=== PATIENT | male | born 1955 | race Caucasian/White ===

== ENCOUNTER → 2019-08-08 10:28 | Outpatient (CLI) | payer OTHER, SELFPAY | PROVIDERS: Visit Provider Physician Assistant | DX: S21.209A Unspecified open wound of unspecified back wall of thorax without penetration into thoracic cavity, initial encounter (principal) | CPT/HCPCS: 87070; 87077; 87147; 87186; 87205 ==

== ENCOUNTER → 2019-10-03 12:04 | Outpatient (CLI) | payer OTHER, SELFPAY ==
--- NOTE | 2019-10-03 12:08 | DI.RAD.S_ITS ---
PROCEDURE: XR CHEST 2V INDICATIONS: productive cough green sputum TECHNIQUE: 2 views of the chest were acquired. COMPARISON: None. FINDINGS: Surgical changes and devices: None. Lungs and pleura: Lungs are clear. No pleural effusions or pneumothorax. Mediastinum: Mediastinal contours are normal. Heart size is normal. Bones and chest wall: No suspicious bony abnormalities. Soft tissues appear unremarkable. IMPRESSION: No pneumonia found. Dictated by: Jitendra Schmid M.D. on 10/03/2019 at 12:58 Approved by: Jitendra Schmid M.D. on 10/03/2019 at 12:59
== END ==
PROVIDERS: PCP Nurse Practitioner; Visit Provider Nurse Practitioner
DX: R05 Cough (principal)
CPT/HCPCS: 71046

== ENCOUNTER → 2019-10-13 08:08 | Outpatient (CLI) | payer OTHER, MEDICARE, SELFPAY ==
[2019-10-13 08:51] LABS: Add Manual Diff / Slide Review NO; Basophils Absolute Auto 0 /uL (0-100); Basophils Percent Auto 0.6 % (0-2); Eosinophils Absolute Auto 200 /uL (0-450); Eosinophils Percent Auto 4.4 % (2-4); Hematocrit 43.7 % (41-53); Hemoglobin 15.2 g/dL (13.5-17.5); Lymphocytes Absolute Auto 1300 /uL (1100-4500); Lymphocytes Percent Auto 34.5 % (25-40); Mean Corpuscular HGB Conc 34.7 % (30-36); Mean Corpuscular Hemoglobin 31.5 PG (26-34); Mean Corpuscular Volume 90.6 fL (80-100); Monocytes Absolute Auto 400 /uL (0-900); Monocytes Percent Auto 9.5 % (3-14); Neutrophils Absolute Auto 1900 /uL (1500-7000); Platelet Count 168 X10^3/uL (150-400); Red Blood Cell Count 4.83 X10^6/uL (4.5-5.9); White Blood Cell Count 3.8 X10^3/uL (4.5-11.0)
[2019-10-13 09:03] LABS: Alanine Aminotransferase 27 IU/L (<50); Albumin 4.1 g/dL (3.5-5.0); Albumin Globulin Ratio 1.5 (1.0-2.8); Alkaline Phosphatase 64 U/L (38-126); Aspartate Aminotransferase 22 IU/L (17-59); BUN Creatinine Ratio 21.4 (6-22); Bilirubin Total 0.5 mg/dL (0.2-1.3); Blood Urea Nitrogen 15 mg/dL (9-20); Calcium 9.1 mg/dL (8.4-10.2); Carbon Dioxide 27 mmol/L (22-32); Chloride 106 mmol/L (98-107); Cholesterol 239 mg/dL (140-199); Estimated Glomerular Filt Rate > 60.0 mL/min (>60); Globulin 2.8 g/dL (1.7-4.1); Glucose 153 mg/dL (80-110); HDL Cholesterol 42 mg/dL (40-60); HEMOLYSIS < 15 (0-50); LDL Cholesterol Calculated 170 mg/dL (<100); Potassium 4.5 mmol/L (3.4-5.1); Sodium 143 mmol/L (137-145); Total Protein 6.9 g/dL (6.3-8.2); Triglycerides 133 mg/dL (35-150)
[2019-10-13 09:12] LABS: Hemoglobin A1C% w Est Avg Glu 5.8 % (4.0-6.0)
[2019-10-13 09:30] LABS: Prostate Specific Antigen Scrn 1.84 ng/mL (0.1-4.0)
[2019-10-13 09:53] LABS: Microalbumi Creatinin Ratio Ur 635.5 ug/mg CR (<30); Microalbumin Urine Random 48.3 mg/dL (0-1.6)
[2019-10-13 09:57] LABS: Free T4, Direct Thyroxine 0.84 ng/dL (0.78-2.19)
[2019-10-13 10:11] LABS: Thyroid Stimulating Hormone 2.94 uIU/mL (0.47-4.68)
== END ==
PROVIDERS: PCP Nurse Practitioner; Visit Provider Nurse Practitioner
DX: Z12.5 Encounter for screening for malignant neoplasm of prostate (principal); E11.9 Type 2 diabetes mellitus without complications; E66.9 Obesity, unspecified; E78.5 Hyperlipidemia, unspecified; I10 Essential (primary) hypertension; Z79.4 Long term (current) use of insulin
CPT/HCPCS: 36415; 80053; 80061; 82043; 82570; 83036; 84439; 84443; 84481; 85025; G0103

== ENCOUNTER → 2019-11-14 06:37 | Outpatient (CLI) | payer OTHER, MEDICARE, SELFPAY ==
--- NOTE | 2019-11-14 06:39 | DI.ECHO.S_ITS ---
[facility]---------+ [facility] +---------+ : : [address] : : : : [id number] : : : : Phone: [phone] Echocardiogram Report + + :Name: AIDA KEYES Study Date: 11/14/2019 Height: 72 in : :[facility] Weight: 280 lb : : Gender: Male BSA: 2.5 m2 : :: 1955 Age: 64 yrs BP: 156/82 mmHg: :Reason For Study: Hypertension : : Performed By: nAa Mcclure : :Referring: JUAN CARLOS COOK : + + Interpretation Summary Normal both left and right ventricle size and function. The ejection fraction is 55-60%. Moderately dilated left atrium. Mildly dilated right atrium. No valvular abnormality. Moderately enlarged ascending aorta. Mildly enlarged aortic arch. Procedure: A two-dimensional transthoracic echocardiogram with color flow and Doppler was performed. The apical views were difficult to obtain and are suboptimal in quality. A contrast injection of Definity was performed to improve assessment of LV function. There is no prior echocardiogram noted for this patient. The patient was in sinus bradycardia with heart rates between 52-62 bpm during the exam. Left Ventricle: The left ventricle is normal in size and wall thickness. There is no ventricular septal defect visualized. The ejection fraction is estimated to be 55-60%. There are no focal wall motion abnormalities. Diastolic parameters suggest probable normal left ventricular diastolic function and normal filling pressures. Right Ventricle: The right ventricle is normal in size and function. Atria: The left atrium is moderately dilated. The right atrium is mildly dilated. There is no Doppler evidence for an interatrial shunt. Mitral Valve: The mitral valve is normal in structure and function. There is no mitral regurgitation noted. Aortic Valve: The aortic valve is normal in structure and function. No aortic regurgitation is present. Tricuspid Valve: The tricuspid valve is normal in structure and function. Pulmonary artery pressures cannot be estimated because of the lack of a measurable TR jet velocity. Pulmonic Valve: The pulmonic valve is normal in structure and function. There is no pulmonic valvular regurgitation. Great Vessels: The aortic root is normal size. The ascending aorta is moderately enlarged. The aortic arch is mildly enlarged. The IVC is of normal diameter and collapses greater than 50% with a sniff. This suggests a low right atrial pressure of 3 mm Hg. Pericardium/ Pleura There is no pericardial effusion. MMode/2D Measurements & Calculations LVIDd: 5.6 cm LVOT diam: 2.5 cm LVIDs: 4.0 cm Ao root diam: 4.0 cm FS: 28.9 % Aortic Jxn: 3.1 cm EPSS: 0.51 cm asc Aorta Diam: 4.2 cm IVSd: 0.95 cm Ao Arch Diam (Prox Trans): 3.7 cm LVPWd: 0.98 cm LV mora. diameter/BSA (cm/m^2): 2.3 LV sys. diameter/BSA (cm/m^2): 1.6 LA A2 area: 30.4 cm2 RA long axis: 5.8 cm LA A4 area: 29.2 cm2 RA area: 23.3 cm2 LA length (vol): 6.6 cm RA vol: 80.0 ml LA vol: 113.9 ml RA : 32.5 ml/m2 LA vol index: 46.3 ml/m2 IVC diam: 1.7 cm RVD1 (basal): 4.4 cm RVD2 (mid): 3.1 cm TAPSE: 3.0 cm Doppler Measurements & Calculations Ao V2 max: 108.8 cm/sec LVOT Max Joel: 76.3 cm/sec Ao V2 mean: 76.9 cm/sec LV V1 max P.3 mmHg Ao max P.7 mmHg LV V1 VTI: 19.2 cm Ao mean P.6 mmHg DOUGLAS(I,D): 3.7 cm2 Ao V2 VTI: 24.3 cm DOUGLAS(V,D): 3.3 cm2 sev ratio: 0.79 DOUGLAS indexed to BSA (cm^2/m^2): 1.5 MV E max joel: 62.1 cm/sec PA V2 max: 77.3 cm/sec MV A max joel: 59.3 cm/sec PA V2 mean: 57.2 cm/sec MV E/A: 1.0 PA mean P.4 mmHg Med Peak E' Joel: 5.9 cm/sec PA Accel Time: 0.13 sec E/E' med: 10.5 Lat Peak E' Joel: 6.6 cm/sec E/E' lat: 9.4 E/e' average: 10.0 MV dec time: 0.27 sec MV P1/2t: 79.4 msec MV P1/2t max joel: 62.1 cm/sec SV(LVOT): 90.7 ml MVA(P1/2t): 2.8 cm2 Electronically signed by: Carlos Rosas on Reading Physician:11/14/2019 03:13 PM
== END ==
PROVIDERS: PCP Nurse Practitioner; Visit Provider Nurse Practitioner
DX: I77.89 Other specified disorders of arteries and arterioles (principal); I10 Essential (primary) hypertension; E03.9 Hypothyroidism, unspecified
CPT/HCPCS: 93306; Q9957

== ENCOUNTER → 2020-01-16 11:12 | Outpatient (CLI) | payer OTHER, MEDICARE, SELFPAY ==
[2020-01-16 11:58] LABS: Hemoglobin A1C% w Est Avg Glu 6.7 % (4.0-6.0)
[2020-01-16 12:05] LABS: Alanine Aminotransferase 38 IU/L (<50); Albumin 4.5 g/dL (3.5-5.0); Albumin Globulin Ratio 1.6 (1.0-2.8); Alkaline Phosphatase 77 U/L (38-126); Aspartate Aminotransferase 29 IU/L (17-59); BUN Creatinine Ratio 16.5 (6-22); Bilirubin Total 0.8 mg/dL (0.2-1.3); Bilirubin Unconjugated 0.7 mg/dL (0.0-1.1); Blood Urea Nitrogen 13 mg/dL (9-20); Calcium 9.5 mg/dL (8.4-10.2); Carbon Dioxide 30 mmol/L (22-32); Chloride 104 mmol/L (98-107); Cholesterol 189 mg/dL (140-199); Estimated Glomerular Filt Rate > 60.0 mL/min (>60); Globulin 2.9 g/dL (1.7-4.1); Glucose 166 mg/dL (80-110); HDL Cholesterol 44 mg/dL (40-60); HEMOLYSIS < 15 (0-50); LDL Cholesterol Calculated 97 mg/dL (<100); Sodium 139 mmol/L (137-145); Total Protein 7.4 g/dL (6.3-8.2); Triglycerides 238 mg/dL (35-150)
[2020-01-16 12:23] LABS: Free T3, Triiodothyronine Free 2.96 pg/mL (2.77-5.27); Free T4, Direct Thyroxine 0.88 ng/dL (0.78-2.19)
[2020-01-16 12:33] LABS: Hematocrit 46.3 % (41-53); Hemoglobin 16.1 g/dL (13.5-17.5); Mean Corpuscular HGB Conc 34.9 % (30-36); Mean Corpuscular Hemoglobin 31.7 PG (26-34); Mean Corpuscular Volume 90.8 fL (80-100); Platelet Count 213 X10^3/uL (150-400); Red Cell Distribution Width 13.3 % (11.6-14.8)
[2020-01-16 12:36] LABS: Creatinine Urine Random 76.6 mg/dL; Thyroid Stimulating Hormone 3.38 uIU/mL (0.47-4.68)
[2020-01-16 12:52] LABS: Hep C Virus Ab w/Reflex Quant NEGATIVE s/c (NEGATIVE)
[2020-01-16 13:23] LABS: Microalbumin Urine Random 69.1 mg/dL (0-1.6)
== END ==
PROVIDERS: PCP Nurse Practitioner; Referring Provider Nurse Practitioner; Visit Provider Nurse Practitioner
DX: Z11.59 Encounter for screening for other viral diseases (principal); E66.9 Obesity, unspecified; E78.5 Hyperlipidemia, unspecified; I10 Essential (primary) hypertension; R73.9 Hyperglycemia, unspecified; Z79.899 Other long term (current) drug therapy; D72.819 Decreased white blood cell count, unspecified; E11.69 Type 2 diabetes mellitus with other specified complication
CPT/HCPCS: 36415; 80053; 80061; 80076; 82043; 82570; 83036; 84439; 84443; 84481; 85027; 86803

== ENCOUNTER → 2020-04-20 07:36 | Outpatient (CLI) | payer OTHER, MEDICARE, SELFPAY ==
[2020-04-20 09:46] LABS: Hemoglobin A1C% w Est Avg Glu 5.8 % (4.0-6.0)
[2020-04-20 10:03] LABS: Cholesterol 125 mg/dL (140-199); Glucose 127 mg/dL (80-110); HDL Cholesterol 49 mg/dL (40-60); LDL Cholesterol Calculated 53 mg/dL (<100); Triglycerides 115 mg/dL (35-150)
== END ==
PROVIDERS: PCP Nurse Practitioner; Referring Provider Nurse Practitioner; Visit Provider Nurse Practitioner
DX: E78.1 Pure hyperglyceridemia (principal); E78.5 Hyperlipidemia, unspecified; R73.9 Hyperglycemia, unspecified
CPT/HCPCS: 36415; 80061; 82947; 83036

== ENCOUNTER → 2020-05-21 13:11 | Outpatient (CLI) | payer OTHER, MEDICARE, SELFPAY ==
[2020-05-21 13:52] LABS: Add Manual Diff / Slide Review NO; Basophils Absolute Auto 0 /uL (0-100); Basophils Percent Auto 0.4 % (0-2); Eosinophils Absolute Auto 200 /uL (0-450); Eosinophils Percent Auto 3.3 % (2-4); Hematocrit 38.3 % (41-53); Hemoglobin 13.7 g/dL (13.5-17.5); Lymphocytes Absolute Auto 1500 /uL (1100-4500); Mean Corpuscular HGB Conc 35.7 % (30-36); Mean Corpuscular Volume 89.8 fL (80-100); Monocytes Absolute Auto 400 /uL (0-900); Monocytes Percent Auto 6.8 % (3-14); Neutrophils Absolute Auto 4300 /uL (1500-7000); Neutrophils Percent Auto 66.5 % (50-75); Platelet Count 194 X10^3/uL (150-400); Red Blood Cell Count 4.27 X10^6/uL (4.5-5.9); Red Cell Distribution Width 13.2 % (11.6-14.8); White Blood Cell Count 6.5 X10^3/uL (4.5-11.0)
[2020-05-21 13:58] LABS: Alanine Aminotransferase 33 IU/L (<50); Albumin 4.1 g/dL (3.5-5.0); Albumin Globulin Ratio 1.6 (1.0-2.8); Alkaline Phosphatase 65 U/L (38-126); Aspartate Aminotransferase 30 IU/L (17-59); BUN Creatinine Ratio 25.8 (6-22); Bilirubin Total 0.7 mg/dL (0.2-1.3); Blood Urea Nitrogen 16 mg/dL (9-20); Calcium 9.2 mg/dL (8.4-10.2); Carbon Dioxide 28 mmol/L (22-32); Chloride 98 mmol/L (98-107); Estimated Glomerular Filt Rate > 60.0 mL/min (>60); Globulin 2.5 g/dL (1.7-4.1); Glucose 112 mg/dL (80-110); HEMOLYSIS < 15 (0-50); Potassium 4.8 mmol/L (3.4-5.1); Sodium 133 mmol/L (137-145); Total Protein 6.6 g/dL (6.3-8.2)
[2020-05-21 15:03] LABS: Free T3, Triiodothyronine Free 2.37 pg/mL (2.77-5.27); Free T4, Direct Thyroxine 0.93 ng/dL (0.78-2.19)
[2020-05-21 15:16] LABS: Thyroid Stimulating Hormone 2.08 uIU/mL (0.47-4.68)
== END ==
PROVIDERS: PCP Nurse Practitioner; Referring Provider Nurse Practitioner; Visit Provider Nurse Practitioner
DX: E03.9 Hypothyroidism, unspecified (principal); E11.9 Type 2 diabetes mellitus without complications; R53.83 Other fatigue; R68.89 Other general symptoms and signs; R73.9 Hyperglycemia, unspecified
CPT/HCPCS: 36415; 80053; 84439; 84443; 84481; 85025

== ENCOUNTER 2020-06-16 10:28 | Observation (INO) | payer OTHER, MEDICARE, SELFPAY ==
[2020-06-16] VITALS (15 sets, daily range): BP systolic 115–159; BP diastolic 58–84; PULSE 54–65; RESP 14–18; TEMP 36.7–36.9; O2SAT 96–99; BMI 35.2
--- NOTE | 2020-06-16 11:01 | ED.SYNCOPE ---
HPI - Syncope General Chief Complaint: Syncope Stated Complaint: passed out last night,scrape on arm/knee pain Time Seen by Provider: 06/16/20 10:32 Source: patient and family Mode of arrival: Ambulatory Limitations: no limitations History of Present Illness HPI narrative: Patient here with . Complaints of syncopal episode 1:00 a.m. today. Patient got up from bed to use the restroom. Was slightly dizzy on the commode having a bowel movement. Denies any current or recent bloody or black stools. He was able to relieve himself and got up and was at the sink to rinse his mouth. Became very lightheaded and states he passed out and awoke on his side on the floor. Patient has been evaluated by Family provider nurse practitioner Cassie donald in the past 4 weeks. Blood studies which were unremarkable including thyroid panel. No EKG echocardiogram or Holter monitor. Patient states he is getting worse. I spoke with Cassie donald and would be comfortable patient being admitted today for syncopal episode. Patient has been ambulatory since event. Does relate right knee pain. MD complaint: loss of consciousness Related Data Previous Rx's Medication Instructions Recorded atorvastatin 40 mg tablet 20 mg PO BEDTIME #45 tab 04/22/20 lisinopril 5 mg tablet 7.5 mg PO DAILY #120 tab 04/22/20 Allergies Allergy/AdvReac Type Severity Reaction Status Date / Time No Known Drug Allergies Allergy Verified 01/14/20 08:50 Review of Systems Review of Systems Narrative: GENERAL: Denies chills, fatigue, malaise, fever, sweats. HEENT: Denies sinus pain, ear pain, sore throat, difficulty swallowing, dizziness. RESPIRATORY: Denies dyspnea, cough, wheezing, hemoptysis, sputum. CARDIOVASCULAR: Denies chest pain, palpitations, orthopnea, edema, GASTROINTESTINAL: Denies nausea, vomiting, abdominal pain, diarrhea, constipation, melena. : Denies dysuria, frequency, incontinence, hematuria, urinary retention. MUSCULOSKELETAL: denies weakness, joint pain, or bony pain SKIN: Denies rash, skin lesions, complains abrasion NEUROLOGIC: Denies weakness, headache, numbness, change in speech, confusion, seizures, incoordination. Complains of dizziness PSYCHIATRIC: No concerning psychosocial issues. ROS Unobtainable: All systems reviewed & are unremarkable except as noted in HPI and below Patient History Medical History Activity intolerance (Acute) Dumping syndrome (Chronic) Fatigue (Acute) Hx MRSA infection (Acute) Hyperlipidemia associated with type 2 diabetes mellitus (Acute) Hypertension associated with diabetes (Acute ~2008) Hypothyroidism (Chronic ~2008) Morbid obesity with BMI of 50.0-59.9, adult (Resolved) Obesity (BMI 35.0-39.9 without comorbidity) (Chronic) Obstructive sleep apnea (Chronic) Other alf (current) drug therapy (Acute) Peripheral neuropathy (Chronic) Shoulder pain, right (Acute ~2017) Tinnitus (Chronic ~1999) Type 2 diabetes mellitus (Acute ~2008) Surgical History Anesthesia (Resolved) H/O vascular surgery (Acute ~2014) History of tonsillectomy (Acute ~1962) Status post laser cataract surgery of both eyes (Acute ~1992) Family History Father Embolism Mother Breast cancer Grandfather No problems noted. Grandmother Dementia in Pick's disease Grandfather No problems noted. Social History household members: significant other Smoking Status: Former smoker alcohol intake: current substance use type: does not use Smoking Status: Former smoker Substance Use Type: does not use Exam Narrative Exam Narrative: GENERAL: patient appears stated age. Well-nourished, well-developed patient, in no distress, not toxic HEAD: Atraumatic. Normocephalic. EYES: Pupils equal round and reactive. Extraocular motions intact. No scleral icterus. No injection or drainage. ENT: Nose without bleeding, purulent drainage. Throat without erythema, tonsillar hypertrophy or exudate. Airway patent. NECK: Trachea midline. Non tender no midline tenderness or step-off. CARDIOVASCULAR: Regular rate and rhythm without murmurs, gallops, or rubs. RESPIRATORY: Clear to auscultation. Breath sounds equal bilaterally. No wheezes, rales, or rhonchi. GASTROINTESTINAL: Abdomen soft, non-tender, nondistended. EXTREMITIES: No edema or joint tenderness. Abrasion to the left triceps. No active bleeding. Nontender shoulder elbow and wrist. No deformity. Examination right lower extremity knee to foot exposed.. Limb is warm soft and pink. Abrasion over right patella. Able to flex extend knee fully actively 90? and then completely extended. No gross deformity. Mild tenderness to touch. No effusion. BACK: Nontender without deformity or crepitance. No flank tenderness. No midline tenderness or step-off. NEURO: AOx3. SKIN: No rash or erythema of visible areas PSYCH: Not anxious, is cooperative Initial Vital Signs Initial Vital Signs: Vital Signs Temperature 98.4 F 06/16/20 10:34 Pulse Rate 64 06/16/20 10:34 Respiratory Rate 18 06/16/20 10:34 Blood Pressure 159/74 H 06/16/20 10:34 Pulse Oximetry 98 06/16/20 10:34 Course Course Course Narrative: Family and patient concerned about worsening condition since May. This has led to syncopal episode today. The would be much more comfortable with admission for syncopal workup. Family physician desires patient to be observed and worked up as well Decision to Admit Date: 06/16/20 Decision to Admit time: 13:53 Orders Ordered: Discontinued Medications Acetaminophen (Tylenol) 650 mg PO Q6HR PRN PRN Reason: Fever/Mild Pain (1-3) Al Hydrox/Mg Hydrox/Simethicone (Maalox Plus) 30 ml PO Q6HR PRN PRN Reason: Dyspepsia Atorvastatin Calcium (Lipitor) 20 mg PO BEDTIME [facility] Last Admin: 06/16/20 21:04 Dose: 20 mg Documented by: VICKI Bisacodyl (Dulcolax) 10 mg LA DAILY PRN PRN Reason: Constipation Calcium Carbonate (Tums) 1,000 mg PO Q4HR PRN PRN Reason: Dyspepsia Diphtheria/Tetanus/Acell Pertussis (Adacel) 0.5 ml IM .ONCE ONE Stop: 06/16/20 11:08 Last Admin: 06/16/20 13:21 Dose: 0.5 ml Documented by: RENETTA Docusate Sodium (Colace) 100 mg PO BID [facility] Last Admin: 06/17/20 08:53 Dose: Not Given Documented by: Admin: 06/16/20 21:04 Dose: 100 mg Documented by: VICKI Enoxaparin Sodium (Lovenox) 40 mg SUBCUT DAILY [facility] Last Admin: 06/17/20 08:53 Dose: Not Given Documented by: UMA Sodium Chloride (Normal Saline 0.9%) 1,000 mls @ 150 mls/hr IV CONT [facility] Last Admin: 06/16/20 13:05 Dose: Not Given Documented by: RENETTA Ibuprofen (Advil) 600 mg PO Q6HR PRN PRN Reason: Fever/Mild Pain (1-3) Last Admin: 06/17/20 15:35 Dose: 600 mg Documented by: VICKI Lisinopril (Zestril) 7.5 mg PO DAILY [facility] Last Admin: 06/17/20 08:52 Dose: Not Given Documented by: UMA Naloxone HCl (Narcan) 0.2 mg IV Q2MIN PRN PRN Reason: Opiate Reversal Ondansetron HCl (Zofran) 4 mg IV Q8HR PRN PRN Reason: Nausea And Vomiting Oxycodone HCl (Percolone) 5 mg PO Q6HR PRN PRN Reason: Pain, Moderate (4-6) Sodium Chloride (Normal Saline 0.9% Flush) 10 ml IV BID [facility] Last Admin: 06/17/20 08:54 Dose: 10 ml Documented by: Admin: 06/16/20 21:01 Dose: 10 ml Documented by: VICKI Reevaluation(s) Reevaluation #1: No dizziness no new complaints at this time. Time: 13:53 Consultations Consultation #1: Spoke with primary care provider, nurse practitioner, Cassie donald, she would be comfortable patient be admitted today she has done but she could from outpatient setting Time: 11:09 Consultation #2: Spoke with hospitalist, Dr. roldan, will admit Time: 13:53 Vital Signs Vital signs: Vital Signs - 8 hr 06/16/20 10:34 06/16/20 10:48 06/16/20 11:00 Temperature 98.4 F Pulse Rate 64 60 60 Pulse Rate [Orthostatic Lying] Pulse Rate [Orthostatic Sitting] Pulse Rate [Orthostatic Standing] Respiratory Rate 18 15 17 Blood Pressure 159/74 H Blood Pressure [Orthostatic Lying] Blood Pressure [Orthostatic Sitting] Blood Pressure [Orthostatic Standing] Pulse Oximetry 98 98 96 06/16/20 11:01 06/16/20 11:16 08/12/20 11:30 Temperature Pulse Rate 59 L 57 L 57 L Pulse Rate [Orthostatic Lying] Pulse Rate [Orthostatic Sitting] Pulse Rate [Orthostatic Standing] Respiratory Rate 17 18 14 Blood Pressure 141/65 H 122/69 121/70 Blood Pressure [Orthostatic Lying] Blood Pressure [Orthostatic Sitting] Blood Pressure [Orthostatic Standing] Pulse Oximetry 96 98 96 06/16/20 11:44 06/16/20 11:46 06/16/20 11:47 Temperature Pulse Rate 56 L 64 Pulse Rate [Orthostatic Lying] Pulse Rate [Orthostatic Sitting] Pulse Rate [Orthostatic Standing] Respiratory Rate 18 16 Blood Pressure 126/72 135/73 115/66 Blood Pressure [Orthostatic Lying] Blood Pressure [Orthostatic Sitting] Blood Pressure [Orthostatic Standing] Pulse Oximetry 97 98 06/16/20 11:49 06/16/20 12:00 06/16/20 12:30 Temperature Pulse Rate 55 L 56 L Pulse Rate [Orthostatic Lying] 55 L Pulse Rate [Orthostatic Sitting] 62 Pulse Rate [Orthostatic Standing] 65 Respiratory Rate 15 16 Blood Pressure 138/65 115/58 L Blood Pressure [Orthostatic Lying] 126/72 Blood Pressure [Orthostatic Sitting] 135/73 Blood Pressure [Orthostatic Standing] 115/66 Pulse Oximetry 97 97 MDM - Syncope Differential Diagnosis Differential diagnosis: Likely syncope due to orthostatic hypotension, vasovagal syncope and pulmonary embolism Medical Records Attestation: I reviewed the patient's medical records. Lab Data Attestation: I reviewed the patient's lab results. Result diagrams: 06/16/20 10:35 06/16/20 10:35 Labs: Lab Results 06/16/20 06/16/20 06/16/20 Range/Units 10:35 10:35 10:35 WBC 8.5 (4.5-11.0) X10^3/uL RBC 4.52 (4.5-5.9) X10^6/uL Hgb 14.5 (13.5-17.5) g/dL Hct 41.3 (41-53) % MCV 91.4 (80-100) fL MCH 32.1 (26-34) PG MCHC 35.1 (30-36) % RDW 12.9 (11.6-14.8) % Plt Count 205 (150-400) X10^3/uL Neut % (Auto) 75.9 H (50-75) % Lymph % (Auto) 15.1 L (25-40) % [place] % (Auto) 7.1 (3-14) % Eos % (Auto) 1.5 L (2-4) % Baso % (Auto) 0.4 (0-2) % Neut # (Auto) 6500 (6955-6725) /uL Lymph # (Auto) 1300 (6170-0297) /uL [place] # (Auto) 600 (0-900) /uL Eos # (Auto) 100 (0-450) /uL Baso # (Auto) 0 (0-100) /uL D-Dimer < 200 (<230) ng/mL Sodium 134 L (137-145) mmol/L Potassium 4.5 (3.4-5.1) mmol/L Chloride 101 (98-107) mmol/L Carbon Dioxide 25 (22-32) mmol/L BUN 23 H (9-20) mg/dL Creatinine 0.74 (0.66-1.25) mg/dL Estimated GFR > 60.0 (>60) mL/min BUN/Creatinine Ratio 31.1 H (6-22) Glucose 151 H (80-110) mg/dL Hemoglobin A1c (4.0-6.0) % Calcium 9.2 (8.4-10.2) mg/dL Magnesium 2.1 (1.6-2.3) mg/dL Total Bilirubin 0.6 (0.2-1.3) mg/dL AST 30 (17-59) IU/L ALT 27 (<50) IU/L Alkaline Phosphatase 68 (38-126) U/L Total Creatine Kinase 39 L (55-170) U/L CK-MB (CK-2) TNP CK-MB (CK-2) Rel Index TNP Troponin I < 0.012 (0.01-0.034) ng/mL Total Protein 7.4 (6.3-8.2) g/dL Albumin 4.5 (3.5-5.0) g/dL Globulin 2.9 (1.7-4.1) g/dL Albumin/Globulin Ratio 1.6 (1.0-2.8) 08/12/20 Range/Units 10:35 WBC (4.5-11.0) X10^3/uL RBC (4.5-5.9) X10^6/uL Hgb (13.5-17.5) g/dL Hct (41-53) % MCV (80-100) fL MCH (26-34) PG MCHC (30-36) % RDW (11.6-14.8) % Plt Count (150-400) X10^3/uL Neut % (Auto) (50-75) % Lymph % (Auto) (25-40) % [place] % (Auto) (3-14) % Eos % (Auto) (2-4) % Baso % (Auto) (0-2) % Neut # (Auto) (9204-8574) /uL Lymph # (Auto) (8447-2637) /uL [place] # (Auto) (0-900) /uL Eos # (Auto) (0-450) /uL Baso # (Auto) (0-100) /uL D-Dimer (<230) ng/mL Sodium (137-145) mmol/L Potassium (3.4-5.1) mmol/L Chloride (98-107) mmol/L Carbon Dioxide (22-32) mmol/L BUN (9-20) mg/dL Creatinine (0.66-1.25) mg/dL Estimated GFR (>60) mL/min BUN/Creatinine Ratio (6-22) Glucose (80-110) mg/dL Hemoglobin A1c 5.4 (4.0-6.0) % Calcium (8.4-10.2) mg/dL Magnesium (1.6-2.3) mg/dL Total Bilirubin (0.2-1.3) mg/dL AST (17-59) IU/L ALT (<50) IU/L Alkaline Phosphatase (38-126) U/L Total Creatine Kinase (55-170) U/L CK-MB (CK-2) CK-MB (CK-2) Rel Index Troponin I (0.01-0.034) ng/mL Total Protein (6.3-8.2) g/dL Albumin (3.5-5.0) g/dL Globulin (1.7-4.1) g/dL Albumin/Globulin Ratio (1.0-2.8) Imaging Data CT scan - head: Radiologist's Impression: [address] [place] [address] CT Scan Report Signed Patient: Terrell Strong RMR#: [id number] : 1955cct:[id number] Age/Sex: 64 / MDate of Service: 06/16/20 Loc: ED Accession Number: [id number] Procedure: CT head/brain wo con Ordering Provider: Al Richard MD PROCEDURE: CT HEAD/BRAIN WO CON INDICATIONS: Syncope TECHNIQUE: Noncontrast 4.5 mm thick angled axial sections acquired from the foramen magnum to the vertex, with coronal and sagittal reformats. For radiation dose reduction, the following was used: automated exposure control, adjustment of mA and/or kV according to patient size. COMPARISON: None. FINDINGS: Image quality: Excellent. CSF spaces: Basal cisterns are patent. No extra-axial fluid collections. The ventricles are symmetric in size and shape. Brain: No intracranial bleeds or masses. There is mild cerebral volume loss for age, with resultant ventricular and sulcal prominence. There are mild periventricular and deep white matter chronic small vessel ischemic changes. There is intracranial internal carotid artery atherosclerosis. Skull and face: Calvarium and visualized facial bones appear intact, without suspicious lesions. Sinuses: Visualized sinuses and mastoids are clear. IMPRESSION: 1. No acute intracranial abnormalities. 2. Cerebral volume loss and chronic microvascular ischemic changes. Dictated by: Juan Ramon Soto M.D. on 06/16/2020 at 11:24 Approved by: Juan Ramon Soto M.D. on 06/16/2020 at 11:27 Chest x-ray: Radiologist's Impression: [address] [address] XRay Report Signed Patient: Terrell Strong RMR#: [id number] : 4Acct:[id number] Age/Sex: 64 / MDate of Service: 06/16/20 Loc: ED Accession Number: [id number] Procedure: XR chest 1V Ordering Provider: Al Richard MD PROCEDURE: XR CHEST 1V INDICATIONS: syncope TECHNIQUE: One view of the chest was acquired. COMPARISON: [facility], CR, XR CHEST 2V, 10/03/2019, 12:04. FINDINGS: Surgical changes and devices: None. Lungs and pleura: Lungs are clear. No pleural effusions or pneumothorax. Mediastinum: Mediastinal contours appear normal. Heart size is normal. Bones and chest wall: No suspicious bony lesions. Overlying soft tissues appear unremarkable. IMPRESSION: No acute cardiopulmonary disease. Dictated by: Juan Ramon Soto M.D. on 06/16/2020 at 11:42 Approved by: Juan Ramon Soto M.D. on 06/16/2020 at 11:42 Extremity x-ray #1: Radiologist's Impression: [address] [address] XRay Report Signed Patient: Terrell Strong RMR#: [id number] : 4Acct:[id number] Age/Sex: 64 / MDate of Service: 06/16/20 Loc: ED Accession Number: [id number] Procedure: XR knee RT 1to2V Ordering Provider: Al Richard MD PROCEDURE: XR KNEE RT 1TO2V INDICATIONS: Fall/injury TECHNIQUE: 2 views of the knee were acquired. COMPARISON: None. FINDINGS: Bones: No fractures or dislocations. No suspicious bony lesions. Soft tissues: No joint effusion. No suspicious soft tissue calcifications. IMPRESSION: No acute osseous abnormalities. Dictated by: Juan Ramon Soto M.D. on 06/16/2020 at 11:44 Approved by: Juan Ramon Soto M.D. on 06/16/2020 at 11:46 ECG Data Attestation: I personally reviewed and interpreted this ECG as follows: Interpretation: Sinus rhythm ventricular rate 61. No ST elevation depression MDM Narrative Medical decision making narrative: Appropriate for admission today. Ongoing worsening symptoms, has exacerbated workup outpatient with family physician. Would benefit from echocardiogram and possible brain MRI Discharge Plan Departure Patient Disposition: Admitted as Observation Clinical Impression: Syncope and collapse Discharge Date/Time: 06/16/20 14:46 Referrals: Cassie Donald ARNP [Primary Care Provider] - Admit Date/Time: 06/16/20 13:51 Admit Provider: Sugar Roldan
[2020-06-16 11:09] LABS: Add Manual Diff / Slide Review NO; Basophils Absolute Auto 0 /uL (0-100); Basophils Percent Auto 0.4 % (0-2); Eosinophils Absolute Auto 100 /uL (0-450); Eosinophils Percent Auto 1.5 % (2-4); Hematocrit 41.3 % (41-53); Hemoglobin 14.5 g/dL (13.5-17.5); Lymphocytes Absolute Auto 1300 /uL (1100-4500); Lymphocytes Percent Auto 15.1 % (25-40); Mean Corpuscular HGB Conc 35.1 % (30-36); Mean Corpuscular Hemoglobin 32.1 PG (26-34); Mean Corpuscular Volume 91.4 fL (80-100); Monocytes Absolute Auto 600 /uL (0-900); Monocytes Percent Auto 7.1 % (3-14); Neutrophils Absolute Auto 6500 /uL (1500-7000); Neutrophils Percent Auto 75.9 % (50-75); Platelet Count 205 X10^3/uL (150-400); Red Blood Cell Count 4.52 X10^6/uL (4.5-5.9); Red Cell Distribution Width 12.9 % (11.6-14.8); White Blood Cell Count 8.5 X10^3/uL (4.5-11.0)
[2020-06-16 11:13] LABS: D Dimer < 200 ng/mL (<230)
[2020-06-16 11:14] LABS: Alanine Aminotransferase 27 IU/L (<50); Albumin 4.5 g/dL (3.5-5.0); Albumin Globulin Ratio 1.6 (1.0-2.8); Alkaline Phosphatase 68 U/L (38-126); Aspartate Aminotransferase 30 IU/L (17-59); BUN Creatinine Ratio 31.1 (6-22); Bilirubin Total 0.6 mg/dL (0.2-1.3); Blood Urea Nitrogen 23 mg/dL (9-20); Calcium 9.2 mg/dL (8.4-10.2); Carbon Dioxide 25 mmol/L (22-32); Chloride 101 mmol/L (98-107); Creatine Kinase 39 U/L (55-170); Estimated Glomerular Filt Rate > 60.0 mL/min (>60); Globulin 2.9 g/dL (1.7-4.1); Glucose 151 mg/dL (80-110); HEMOLYSIS 22 (0-50); Magnesium 2.1 mg/dL (1.6-2.3); Potassium 4.5 mmol/L (3.4-5.1); Sodium 134 mmol/L (137-145); Total Protein 7.4 g/dL (6.3-8.2)
[2020-06-16 11:26] LABS: Troponin I < 0.012 ng/mL (0.01-0.034)
--- NOTE | 2020-06-16 12:18 | PC.NURSE ---
reports passing out last night. unsure how long he was out.
--- NOTE | 2020-06-16 12:19 | PC.NURSE ---
ambulated into ED. Reports passing out last night. Unknown duration of LOC.
[2020-06-16] MEDS: TET,DIPH,PERTUSS(ACELL),VAC/PF 0.5 ML SYRINGE IM (13:21)
[2020-06-16 15:45] LABS: COVID19 -Nasal RAPID Negative (Negative)
--- NOTE | 2020-06-16 16:10 | DI.ECHO.S_ITS ---
[facility] +---------+ : : [address] : : : : [id number] : : : : Phone: [phone] Echocardiogram Report + + :Name: AIDA KEYES Study Date: 06/17/2020 Height: 72 in : :[facility] Weight: 260 lb : : Gender: Male BSA: 2.4 m2 : :: 1955 Age: 64 yrs BP: 133/73 mmHg: :Reason For Study: Syncope : :Ordering Physician: Vane : :Hospitalist Performed By: Marla Gonzales : :Referring: HANANE RENO : + + Interpretation Summary 1) Normal left ventricular thickness, size, wall motion, and systolic function (EF 55-60%). 2) The right ventricle is mildly dilated. The right ventricular systolic function is normal. 3) No significant valvular abnormalities. 4) The ascending aorta is mildly enlarged at 3.8cm. 5) Compared to the Echo done 11/14/2019, ascending aorta enlargement has decreased from 4.2cm to 3.8cm. Procedure: A two-dimensional transthoracic echocardiogram with color flow and Doppler was performed. The study quality was technically adequate. Comparison is made with the echocardiogram of 11/14/2019. A contrast injection of Definity was performed to improve assessment of LV function. Contrast was injected into an intravenous site in the left arm. Left Ventricle: The left ventricle is normal in size. There is normal left ventricular wall thickness. The ejection fraction is estimated to be 55-60%. Left ventricular systolic function is normal without focal wall motion abnormalities. Diastolic parameters suggest a relaxation abnormality of the left ventricle, consistent with probable normal filling pressures. Right Ventricle: The right ventricle is mildly dilated. The right ventricular systolic function is normal. Atria: The left atrium is moderately dilated. The right atrium is mildly dilated. There is no Doppler evidence for an interatrial shunt. Mitral Valve: The mitral valve is normal in structure and function. There is no mitral regurgitation noted. Aortic Valve: The aortic valve is trileaflet. The aortic valve opens well. There is no aortic valve stenosis. No aortic regurgitation is present. Tricuspid Valve: The tricuspid valve is normal in structure and function. There is a trace or physiologic amount of tricuspid regurgitation. Pulmonary artery pressures cannot be estimated because of the lack of a measurable TR jet velocity but the IVC suggests a CVP of around 3 mmHg. Pulmonic Valve: The pulmonic valve is not well visualized. There is no pulmonic valvular regurgitation. Great Vessels: The aortic root is normal size. The ascending aorta is mildly enlarged. The IVC is of normal diameter and collapses greater than 50% with a sniff. This suggests a low right atrial pressure of 3 mm Hg. Pericardium/ Pleura There is no pericardial effusion. There is no pleural effusion. MMode/2D Measurements & Calculations LVIDd: 5.7 cm LVOT diam: 2.6 cm LVIDs: 3.7 cm Ao root diam: 3.6 cm FS: 35.7 % asc Aorta Diam: 3.8 cm EPSS: 0.97 cm Ao Arch Diam (Prox Trans): 3.8 cm IVSd: 0.92 cm LVPWd: 1.1 cm LV mora. diameter/BSA (cm/m^2): 2.4 LV sys. diameter/BSA (cm/m^2): 1.5 LA A2 area: 29.1 cm2 RA long axis: 5.9 cm LA A4 area: 22.7 cm2 RA area: 23.8 cm2 LA length (vol): 6.2 cm RA vol: 80.7 ml LA vol: 90.3 ml RA : 33.9 ml/m2 LA vol index: 37.9 ml/m2 IVC diam: 1.4 cm RVD1 (basal): 4.2 cm TAPSE: 2.1 cm Doppler Measurements & Calculations Ao V2 max: 128.3 cm/sec LVOT Max Joel: 88.1 cm/sec Ao V2 mean: 80.3 cm/sec LV V1 max P.1 mmHg Ao max P.6 mmHg LV V1 VTI: 20.8 cm Ao mean P.1 mmHg DOUGLAS(I,D): 4.3 cm2 Ao V2 VTI: 26.0 cm DOUGLAS(V,D): 3.7 cm2 sev ratio: 0.80 DOUGLAS indexed to BSA (cm^2/m^2): 1.8 MV E max joel: 60.3 cm/sec PA V2 max: 90.0 cm/sec MV A max joel: 57.6 cm/sec PA V2 mean: 66.2 cm/sec MV E/A: 1.0 PA mean P.9 mmHg Med Peak E' Joel: 5.3 cm/sec PA pr(Accel): 5.4 mmHg E/E' med: 11.4 Lat Peak E' Joel: 8.2 cm/sec E/E' lat: 7.3 E/e' average: 9.4 MV dec time: 0.26 sec SV(OT): 111.2 ml Reading Physician:02:45 PM
--- NOTE | 2020-06-16 16:18 | P.HP_ITS ---
History of Present Illness History of Present Illness Chief complaint: passed out last night,scrape on arm/knee pain Narrative: The patient is a 64-year-old male with a history of type 2 diabetes, hypertension, hyperlipidemia who was in his usual state of health until last evening when he got up to go to the restroom and passed out. The patien has had at least 2 prior episodes where he has had unwitnessed syncope. He also reports that for the past 5 weeks he has been quite exhausted. He reports he is tired and according to his for gets little things quickly he has been more tired and weak than usual. He was seen by his primary care provider who has initiated a workup to include thyroid function studies which are normal. The patient's past history is significant for 100 lb weight loss. He was previously an insulin dependent diabetic and has been able to get off all insulin and oral agents. He has had no known hypoglycemic episodes. The patient was evaluated in the emergency room. Orthostatic vital signs were obtained which were negative. He was admitted to the hospital at this time for further evaluation of his syncope. Of note the patient has had no chest pain or palpitations. He has no aura, visual scotoma, or headache associated. He has had no witnessed tonic-clonic activity. He has had no loss of bowel or bladder incontinence during these episodes. Patient History Medical History Activity intolerance (Acute) Dumping syndrome (Chronic) Fatigue (Acute) Hx MRSA infection (Acute) Hyperlipidemia associated with type 2 diabetes mellitus (Acute) Hypertension associated with diabetes (Acute ~2008) Hypothyroidism (Chronic ~2008) Morbid obesity with BMI of 50.0-59.9, adult (Resolved) Obesity (BMI 35.0-39.9 without comorbidity) (Chronic) Obstructive sleep apnea (Chronic) Other care home (current) drug therapy (Acute) Peripheral neuropathy (Chronic) Shoulder pain, right (Acute ~2017) Tinnitus (Chronic ~1999) Type 2 diabetes mellitus (Acute ~2008) Surgical History Anesthesia (Resolved) H/O vascular surgery (Acute ~2014) History of tonsillectomy (Acute ~1962) Status post laser cataract surgery of both eyes (Acute ~1992) Family & Social History Family History Father Embolism Mother Breast cancer Grandfather No problems noted. Grandmother Dementia in Pick's disease Grandfather No problems noted. Social History: household members spouse Prior Living Arrangements House Safety & Behavioral: Feels Safe in Current Yes Environment Been Physically Hurt or No Threatened By a Person Suicidal Ideation Description None Suicide Plan Description No Plan Tobacco & Substance use: Smoking Status Former smoker alcohol intake current alcohol intake frequency holiday/special occasion Substance Use Type does not use Meds Home Medications and Allergies Home Medications Medication Instructions Recorded Confirmed Type atorvastatin 40 mg tablet 20 mg PO BEDTIME #45 tab 04/22/20 06/16/20 Rx lisinopril 5 mg tablet 7.5 mg PO DAILY #120 tab 04/22/20 06/16/20 Rx Allergies Allergy/AdvReac Type Severity Reaction Status Date / Time No Known Drug Allergies Allergy Verified 01/14/20 08:50 Review of Systems Review of Systems ROS: Yes All systems reviewed with the patient and are negative except as otherwise documented Exam Vital Signs (past 8 hours): - 06/16/20 10:34 06/16/20 10:48 06/16/20 11:00 Temperature 98.4 F Pulse Rate 64 60 60 Pulse Rate [Orthostatic Lying] Pulse Rate [Orthostatic Sitting] Pulse Rate [Orthostatic Standing] Respiratory Rate 18 15 17 Blood Pressure 159/74 H Blood Pressure [Orthostatic Lying] Blood Pressure [Orthostatic Sitting] Blood Pressure [Orthostatic Standing] Pulse Oximetry 98 98 96 06/16/20 11:01 06/16/20 11:16 06/16/20 11:30 Temperature Pulse Rate 59 L 57 L 57 L Pulse Rate [Orthostatic Lying] Pulse Rate [Orthostatic Sitting] Pulse Rate [Orthostatic Standing] Respiratory Rate 17 18 14 Blood Pressure 141/65 H 122/69 121/70 Blood Pressure [Orthostatic Lying] Blood Pressure [Orthostatic Sitting] Blood Pressure [Orthostatic Standing] Pulse Oximetry 96 98 96 06/16/20 11:44 06/16/20 11:46 06/16/20 11:47 Temperature Pulse Rate 56 L 64 Pulse Rate [Orthostatic Lying] Pulse Rate [Orthostatic Sitting] Pulse Rate [Orthostatic Standing] Respiratory Rate 18 16 Blood Pressure 126/72 135/73 115/66 Blood Pressure [Orthostatic Lying] Blood Pressure [Orthostatic Sitting] Blood Pressure [Orthostatic Standing] Pulse Oximetry 97 98 06/16/20 11:49 06/16/20 12:00 06/16/20 12:30 Temperature Pulse Rate 55 L 56 L Pulse Rate [Orthostatic Lying] 55 L Pulse Rate [Orthostatic Sitting] 62 Pulse Rate [Orthostatic Standing] 65 Respiratory Rate 15 16 Blood Pressure 138/65 115/58 L Blood Pressure [Orthostatic Lying] 126/72 Blood Pressure [Orthostatic Sitting] 135/73 Blood Pressure [Orthostatic Standing] 115/66 Pulse Oximetry 97 97 06/16/20 14:46 Temperature Pulse Rate 59 L Pulse Rate [Orthostatic Lying] Pulse Rate [Orthostatic Sitting] Pulse Rate [Orthostatic Standing] Respiratory Rate 17 Blood Pressure 141/59 H Blood Pressure [Orthostatic Lying] Blood Pressure [Orthostatic Sitting] Blood Pressure [Orthostatic Standing] Pulse Oximetry 97 Oxygen Delivery Method Room Air Narrative Exam Narrative: Pleasant male resting comfortably in no obvious distress HEENT: Normocephalic atraumatic, extraocular muscles are intact, oropharynx is clear, neck is supple without adenopathy thyromegaly or carotid bruit Lungs: Clear to auscultation Cardiac exam: Regular rate rhythm normal S1-S2 Abdomen: Soft nontender nondistended without hepatosplenomegaly Extremities: No edema Neuro exam: Cranial nerves 2-12 are intact strength is symmetric and equal, sensation is grossly intact reflexes are brisk and equal, gait is not assessed Psychiatric exam: Patient is awake and alert, answers questions appropriately no delusions or hallucinations. Skin exam lower extremity reveals bilateral venous stasis change that appear to be chronic Objective Labs Result Diagrams: 06/16/20 10:35 06/16/20 10:35 Labs: Laboratory Results - last 24 hr 06/16/20 06/16/20 06/16/20 10:35 10:35 10:35 WBC 8.5 RBC 4.52 Hgb 14.5 Hct 41.3 MCV 91.4 MCH 32.1 MCHC 35.1 RDW 12.9 Plt Count 205 Neut % (Auto) 75.9 H Lymph % (Auto) 15.1 L [place] % (Auto) 7.1 Eos % (Auto) 1.5 L Baso % (Auto) 0.4 Neut # (Auto) 6500 Lymph # (Auto) 1300 [place] # (Auto) 600 Eos # (Auto) 100 Baso # (Auto) 0 D-Dimer < 200 Sodium 134 L Potassium 4.5 Chloride 101 Carbon Dioxide 25 BUN 23 H Creatinine 0.74 Estimated GFR > 60.0 BUN/Creatinine Ratio 31.1 H Glucose 151 H Calcium 9.2 Magnesium 2.1 Total Bilirubin 0.6 AST 30 ALT 27 Alkaline Phosphatase 68 Total Creatine Kinase 39 L CK-MB (CK-2) TNP CK-MB (CK-2) Rel Index TNP Troponin I < 0.012 Total Protein 7.4 Albumin 4.5 Globulin 2.9 Albumin/Globulin Ratio 1.6 COVID-19 PCR 06/16/20 13:55 WBC RBC Hgb Hct MCV MCH MCHC RDW Plt Count Neut % (Auto) Lymph % (Auto) [place] % (Auto) Eos % (Auto) Baso % (Auto) Neut # (Auto) Lymph # (Auto) [place] # (Auto) Eos # (Auto) Baso # (Auto) D-Dimer Sodium Potassium Chloride Carbon Dioxide BUN Creatinine Estimated GFR BUN/Creatinine Ratio Glucose Calcium Magnesium Total Bilirubin AST ALT Alkaline Phosphatase Total Creatine Kinase CK-MB (CK-2) CK-MB (CK-2) Rel Index Troponin I Total Protein Albumin Globulin Albumin/Globulin Ratio COVID-19 PCR Negative Assessment & Plan Assessment & Plan narrative: Impression 1. 64-year-old male admitted to the hospital for syncope -EKG in the emergency room reveals sinus rhythm with an moderate intraventricular conduction delay -cardiac enzymes are negative, patient had no palpitations or chest pain associated -patient had orthostatics evaluated in the emergency room and is not orthostatic -his baseline heart rate is 59 raising the possibility of of possible Rudy arrhythmia or intermittent complete heart block causing fatigue and or syncope -thyroid function studies negative -will measure orthostatic vital signs with blood pressure and pulse q.a.m. -will rule out adrenal insufficiency -will obtain cardiac echo to rule out valvular abnormalities -will obtain stress test to rule out underlying ischemia -will continue alarm security or surveillance monitor to rule out tachy or bradyarrhythmia -if all of the above his negative would refer to outpatient cardiology for a loop recorder 2. Hyperlipidemia -will continue statin 3. Hypertension -continue LORI-inhibitor 4. Type 2 diabetes -currently diet control -will check hemoglobin A1c -will check blood sugars a.c. and HS to rule out hypoglycemia as a cause of fatigue Patient reports he is a full code will note that his record accordingly Patient will be placed on Lovenox for DVT prophylaxis Calista is his surrogate decision maker who was at the bedside Quality VTE Deep Vein Thrombosis/Pulmonary Embolism Present on Admission: No
[2020-06-16 20:16] LABS: Hemoglobin A1C% w Est Avg Glu 5.4 % (4.0-6.0)
[2020-06-16] MEDS: SODIUM CHLORIDE 0.9% FLUSH 10 ML IV (21:01)
[2020-06-16] MEDS: ATORVASTATIN 20 MG TABLET PO (21:04)
[2020-06-16] MEDS: DOCUSATE 100 MG CAPSULE PO (21:04)
[2020-06-17] VITALS: BP 143/79; PULSE 63; RESP 18; TEMP 37; O2SAT 96
[2020-06-17 05:48] VITALS: BP 131/85; BP 139/86; BP 145/77; PULSE 60; PULSE 61; PULSE 70; RESP 18; TEMP 36.6; O2SAT 99
[2020-06-17 08:00] VITALS: BP 141/77; PULSE 62; RESP 18; TEMP 36.2; O2SAT 96
[2020-06-17] MEDS: SODIUM CHLORIDE 0.9% FLUSH 10 ML IV (08:54)
[2020-06-17 12:40] VITALS: BP 120/68; PULSE 74; RESP 18; TEMP 36.6; O2SAT 95
[2020-06-17] MEDS: IBUPROFEN 600 MG TABLET PO (15:35)
[2020-06-17 15:45] VITALS: BP 149/82; PULSE 63; RESP 17; TEMP 36.5; O2SAT 97
--- NOTE | 2020-06-17 16:16 | CM.IDA ---
Initial DCP Assessment Note Patient is a 64 yo male, resident of [place]. Patient presents after syncopal episode, heart w/u today performed and patient expected to DC home this evening w/close outpt f/u PCP: Cassie Donald Payer: Veronika PPO/MCR Patient indp and active, eager to return home this evening and waiting to hear from Dr Hurley re: results of stress test. 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 Patient has been pleasant and cooperative throughout the day. Plans to DC home w/partern/family when medically cleared. Ambulating indp in room JW
--- NOTE | 2020-06-17 16:48 | PM.DS.1 ---
History of Present Illness History of Present Illness Chief complaint: passed out last night,scrape on arm/knee pain Narrative: The patient is a 64-year-old male with a history of type 2 diabetes, hypertension, hyperlipidemia who was in his usual state of health until last evening when he got up to go to the restroom and passed out. The patien has had at least 2 prior episodes where he has had unwitnessed syncope. He also reports that for the past 5 weeks he has been quite exhausted. He reports he is tired and according to his for gets little things quickly he has been more tired and weak than usual. He was seen by his primary care provider who has initiated a workup to include thyroid function studies which are normal. The patient's past history is significant for 100 lb weight loss. He was previously an insulin dependent diabetic and has been able to get off all insulin and oral agents. He has had no known hypoglycemic episodes. The patient was evaluated in the emergency room. Orthostatic vital signs were obtained which were negative. He was admitted to the hospital at this time for further evaluation of his syncope. Of note the patient has had no chest pain or palpitations. He has no aura, visual scotoma, or headache associated. He has had no witnessed tonic-clonic activity. He has had no loss of bowel or bladder incontinence during these episodes. Discharge Providers Provider Date of admission: 06/16/20 13:51 Discharge Date: 06/17/20 Primary care physician: ELIZABETH Perkins Discharge provider: Guanakito Hurley MD Summary Hospital Course Discharge Diagnosis: 1. Recurrent syncope 2. Hypertension 3. Type 2 diabetes 4. Sinus bradycardia Procedures: 1. Myocardial perfusion stress test: No evidence of reversible ischemia 2. Transthoracic echo: Normal except for 3.8 cm ascending thoracic aneurysm Hospital Course: Patient admitted due to syncopal episode when he got up in the middle of the night. He has had previous episodes of syncope over a number of years. His blood pressures are mildly elevated and he was not orthostatic. He had periods of sinus bradycardia with heart rate in the low 50s. EKG indicates sinus rhythm, moderate intraventricular conduction delay. His echo was normal except for mild dilation of ascending thoracic aorta, measuring 3.8 cm versus 4.2 cm on 11/14/2019. He should probably have a repeat echo or CT done in a year for surveillance. His myocardial perfusion stress test did not show any evidence of reversible ischemia. Patient is recommended to have a loop recorder as outpatient to evaluate for possible heart arrhythmia causing his syncope. Status at Discharge Cognitive/behavioral status at discharge: oriented Functional status at discharge: independent ambulation Overall status at discharge: patient is back to baseline Exam Vital Signs (past 8 hours): - 06/17/20 12:40 06/17/20 15:45 Temperature 97.8 F 97.7 F Pulse Rate 74 63 Respiratory Rate 18 17 Blood Pressure 120/68 149/82 H Pulse Oximetry 95 97 Oxygen Delivery Method Room Air Oxygen Flow Rate 0 Objective Labs Result Diagrams: 06/16/20 10:35 06/16/20 10:35 Labs: Laboratory Results - last 24 hr 06/16/20 10:35 Hemoglobin A1c 5.4 Discharge Plan Discharge Plan Patient Disposition: Home Discharge comment: Follow up with your PCP Dr Donald to get set up for a loop recorder (continuous heart monitor). ECHO looked good over all except for a small thoracic aneurysm. You should have repeat ECHO or a CT done in 1 year for re-evaluation. Stress test does not show any sign of coronary blockage. Discharge orders & Medications Prescriptions: Continued atorvastatin 40 mg tablet 20 mg PO BEDTIME Qty: 45 RF: 3 lisinopril 5 mg tablet 7.5 mg PO DAILY Qty: 120 RF: 3 Follow up/Referrals: Cassie Donald ARNP [Primary Care Provider] - Diet/Activity/Treatments Diet: Diet as Tolerated Discharge Data Primary Care Provider: Cassie Donald Attending Provider: Sugar Roldan Admit Date/Time: 06/16/20 13:51 Quality VTE Deep Vein Thrombosis/Pulmonary Embolism Present on Admission: No
--- NOTE | 2020-06-17 18:22 | DI.NM.S_ITS ---
DATE OF SERVICE: 06/17/2020 PROCEDURE: Exercise perfusion study. INDICATION: Syncope. RADIOPHARMACEUTICAL: 26.3 millicurie technetium-99m Myoview IV was injected at stress. Please note this is an exercise stress test study only. CARDIAC STRESS: The patient underwent exercise perfusion study under the supervision of an attending staff. He walked on Rocco protocol for 8 minutes and 46 seconds, achieved 101 percent of target heart rate. Baseline blood pressure 130/78. Peak blood pressure 210/90, suggestive of mild hypertensive response. Baseline rhythm was sinus with mild sinus bradycardia. During stress, there was artifact seen at the peak exercise, but in immediate recovery, I do not see any significant ischemic changes. There was no significant arrhythmias. No anginal symptoms were reported. RAW DATA: There is increased subdiaphragmatic activity. The patient's weight is 260 pounds. GATED STUDY: Stress LV ejection fraction 71 percent without any obvious wall motion abnormalities. Stress end-diastolic volume 154 mL. Lung/heart ratio 0.38, which is within normal limits. MYOCARDIAL PERFUSION: Stress supine images revealed moderate-size, mildly decreased perfusion of inferior wall as well as inferior apex, which got significantly improved. However, the patient remained to have minimally decreased perfusion of inferior apex. CONCLUSION: There is mildly decreased perfusion of inferior wall and inferior apex during stress supine, which got significantly improved during prone images. The patient's weight is 260 pounds. There was increased subdiaphragmatic activity. Most likely, we are dealing with diaphragmatic tissue attenuation artifact. On raw data, the inferior wall is moving well, which goes against the diagnosis of previous transmural myocardial infarction. On surface EKG, I do not see any obvious pathological Q-waves in inferior leads. Good exercise tolerance. The patient walked on Rocco protocol for 8 minutes 46 seconds and achieved 10.1 METS of workload and functional aerobic impairment -12 percent. Preserved chronotropic response. There was a mild hypertensive response. No significant arrhythmias. Hence, overall, this is a low-risk myocardial perfusion scan. Terrell Strong - DIEGO/cristy/mateus doc#: [id number]/job#: [id number] dd: 06/17/2020 13:01:00 dt: 06/17/2020 18:13:00 DICTATING MD/COPIES TO: Kamilla Serrano MD COPIES MNE: MARY;
== END 2020-06-17 17:25 | disposition home or self-care (01) ==
LOC: ED 11:49 → AC 13:52
PROVIDERS: Admitting Provider Internal Medicine; Emergency Provider Emergency Medicine; PCP Nurse Practitioner; Referring Provider Emergency Medicine; Visit Provider Internal Medicine
DX: R55 Syncope and collapse (principal); I10 Essential (primary) hypertension; E78.5 Hyperlipidemia, unspecified; W18.30XA Fall on same level, unspecified, initial encounter; E11.9 Type 2 diabetes mellitus without complications; R00.1 Bradycardia, unspecified; E66.01 Morbid (severe) obesity due to excess calories; G47.33 Obstructive sleep apnea (adult) (pediatric); E03.9 Hypothyroidism, unspecified; Z11.59 Encounter for screening for other viral diseases
CPT/HCPCS: 36415; 70450; 71045; 73560; 78451; 80053; 82550; 82962; 83036; 83735; 84484; 85025; 85379; 87635; 90471; 93005; 93017; 93306; 99284; G0378; 90715; A9502; Q9957

== ENCOUNTER → 2020-06-18 09:57 | Outpatient (CLI) | payer OTHER, MEDICARE, SELFPAY ==
[2020-06-16 15:07] VITALS: BMI 35.2
[2020-06-19 02:42] LABS: COVID19 Sendout Not Detected (Not Detect)
== END ==
PROVIDERS: PCP Nurse Practitioner; Visit Provider Physician Assistant
DX: Z11.59 Encounter for screening for other viral diseases (principal)
CPT/HCPCS: 87635

== ENCOUNTER 2020-06-21 07:06 | Day surgery (SDC) | payer OTHER, MEDICARE, SELFPAY ==
[2020-06-16 15:07] VITALS: BMI 35.2
--- NOTE | 2020-06-21 | PATH_ITS ---
[facility] Accession Number: [id number] . 01 Material submitted: . PART A: colon - 70 CM COLON BIOPSY PART B: rectum - RECTAL POLYP . 01 Clinical history: . SCREENING COLONOSCOPY . 02 Diagnosis: A. Colon, 70 cm, Biopsy: Inflamatory polyp. . B. Rectum, Polyp, Biopsy: Hyperplastic polyp. MRV 06/23/2020 1249 Local . 02 Electronically signed: . Calista Swan MD, Pathologist NPI- [id number] . 01 Gross description: . Part A: 70 CM COLON BIOPSY: Received in formalin are 4 fragment(s) of walker, soft tissue measuring 0.5 x 0.4 x 0.3 cm to 0.3 x 0.1 x 0.1 cm submitted entirely in 1 cassette(s) Part B: RECTAL POLYP: Received in formalin is 1 fragment(s) of walker, soft tissue measuring 0.4 x 0.3 x 0.3 cm submitted entirely in 1 cassette(s) /QBJ 06/22/2020 0820 Local . 02 Pathologist provided ICD-10: D12.6 . 02 CPT . 332968, [id number] Performed at: 01 [facility] [address] [facility], [place], [place] [id number] MD Ricky Gerber MD Phone: [phone] Performed at: 02 [facility] [address] [place], [place] [id number] MD Calista Swan MD Phone: [phone]
[2020-06-21 07:22] VITALS: BP 147/71; PULSE 53; RESP 16; TEMP 36.2; O2SAT 99; BMI 35.2
[2020-06-21] MEDS: LACTATED RINGERS 1,000 ML 200 ML IV (07:38)
--- NOTE | 2020-06-21 08:19 | P.HP_ITS ---
History of Present Illness History of Present Illness Date Patient Seen: 06/21/20 Time Patient Seen: 08:19 Chief complaint: SCREENING COLONOSCOPY Narrative: The patient presents for colorectal sreening. Id a previously normal colonoscopy 10 years ago. No personal or family history of colon cancer. On further history denies any recent gastrointestinal symptoms. No nausea, vomiting, abdominal pain, loss of appetite, unexplained weight loss, change in bowel habits, diarrhea, constipation, melena, hematochezia, or bright red blood per rectum. Patient History Medical History Activity intolerance (Acute) Dumping syndrome (Chronic) Fatigue (Acute) Hx MRSA infection (Acute) Hyperlipidemia associated with type 2 diabetes mellitus (Acute) Hypertension associated with diabetes (Acute ~2008) Hypothyroidism (Chronic ~2008) Morbid obesity with BMI of 50.0-59.9, adult (Resolved) Obesity (BMI 35.0-39.9 without comorbidity) (Chronic) Obstructive sleep apnea (Chronic) Other intermediate accountant (current) drug therapy (Acute) Peripheral neuropathy (Chronic) Shoulder pain, right (Acute ~2017) Tinnitus (Chronic ~1999) Type 2 diabetes mellitus (Acute ~2008) Surgical History Anesthesia (Resolved) H/O vascular surgery (Acute ~2014) History of tonsillectomy (Acute ~1962) Status post laser cataract surgery of both eyes (Acute ~1992) Family & Social History Family History Father Embolism Mother Breast cancer Grandfather No problems noted. Grandmother Dementia in Pick's disease Grandfather No problems noted. Social History: household members significant other Tobacco & Substance use: Smoking Status Former smoker alcohol intake current alcohol intake frequency holiday/special occasion Substance Use Type does not use Meds Home Medications and Allergies Home Medications Medication Instructions Recorded Confirmed Type atorvastatin 40 mg tablet 20 mg PO BEDTIME #45 tab 04/22/20 06/21/20 Rx lisinopril 5 mg tablet 7.5 mg PO DAILY #120 tab 04/22/20 06/21/20 Rx Allergies Allergy/AdvReac Type Severity Reaction Status Date / Time No Known Drug Allergies Allergy Verified 01/14/20 08:50 Review of Systems Review of Systems Narrative: A 10 point review of systems is negative except as noted in the HPI Exam Vital Signs (past 8 hours): - 06/21/20 07:22 Temperature 97.1 F L Pulse Rate 53 L Respiratory Rate 16 Blood Pressure 147/71 H Pulse Oximetry 99 Oxygen Delivery Method Room Air Narrative Exam Narrative: General-no acute distress, obese male HEENT-moist mucous membranes, no scleral icterus Neck-supple, no lymphadenopathy Chest- non labored respirations, clear to auscultation bilaterally Cardiac-regular rate no peripheral edema Abdomen-soft, nontender, non distended Extremities-warm, well perfused Neurological-alert and oriented, no focal deficits Assessment & Plan Assessment and plan (1) Screening for colon cancer: Status: Acute Assessment & Plan narrative: The patient requires colorectal screening and colonoscopy is recommended. Technical details were discussed. Risks, benefits, alternatives explained. Risks including but not limited to myocardial infarction, aspiration, bleeding, pain, missed lesion, incomplete examination, need for further radiographic studies, colonic perforation, and need for major abdominal surgery were discussed. All questions were answered to their satisfaction, and they are in agreement with this plan. COVID-19 COVID-19 status: Negative
[2020-06-21] MEDS: fentaNYL 250 MCG/5 ML INJ IV (08:30)
[2020-06-21] MEDS: MIDAZOLAM 5 MG/5 ML VIAL IV (08:30)
--- NOTE | 2020-06-21 08:49 | PM.OP.ENDO ---
Operative Date/Time/Diagnoses Date of procedure: 06/21/20 Time of procedure: 08:49 Pre-op diagnosis: Screening colonoscopy Post-op diagnosis: same Procedure & Clinicians Study performed: Colonoscopy Same procedure as scheduled: Yes Indications: 64-year-old male previous colonoscopy 10 years ago normal presents for routine screening. Surgeon: Rudi Atkinson Procedure Notes SCOAP/Timeout: Performed Procedure in detail: Patient placed in left lateral recumbent position. Time out was performed. Procedural sedation was administered with Versed and Fentanyl. Examination began with a thorough inspection of the perianal area there was no evidence of fissures, fistulae, external hemorrhoids or cutaneous malignancy. The colonoscopy scope was then placed into the rectum the the lumen was insufflated with air. The scope was carefully advanced forward. Ultimately the cecum was intubated and confirmed by identification of the ileocecal valve and the confluence of the taenia. The scope was then slowly withdrawn examining colon thoroughly in all directions. In the rectum the rectal columns were identified and retroflexion of the scope was performed for inspection of the distal rectum and anal canal. The colonoscopy was notable for the followin. Quality of the preparation-good 2. Polyp benign-appearing at 70 cm removed with Jumbo forceps hemostasis observed. Polyp was approximately 1 cm in maximal diameter. 3. Polyp benign-appearing within the rectum less than 5 mm in maximal diameter removed with Jumbo forceps hemostasis observed. Scope withdrawal time: 10 Sedation minutes: 18 Findings: polyp Specimen(s): other (Polyp-70 cm, polyp-rectal) Complications: none Impression: Benign polyps Post-procedure Recommendations: Colonscopy in 5 years Disposition: same day surgery
[2020-06-21 08:54] VITALS: BP 126/60; PULSE 56; RESP 17; TEMP 36.6; O2SAT 99
[2020-06-21 08:58] VITALS: BP 128/61; PULSE 54; RESP 15; O2SAT 98
[2020-06-21 09:03] VITALS: BP 129/62; PULSE 51; RESP 15; O2SAT 98
[2020-06-21 09:10] VITALS: BP 132/57; PULSE 54; RESP 16; TEMP 36.6; O2SAT 98
[2020-06-21 10:00] VITALS: BP 150/72; PULSE 51; RESP 12; TEMP 36.7; O2SAT 100
== END 2020-06-21 10:25 | disposition home or self-care (01) ==
PROVIDERS: PCP Nurse Practitioner; Referring Provider Surgery; Visit Provider Surgery
PROC: 0DJD8ZZ Inspection of Lower Intestinal Tract, Via Natural or Artificial Opening Endoscopic (ICD-10-PCS; CPT 45378; principal; 2020-06-21 08:30)
DX: Z12.11 Encounter for screening for malignant neoplasm of colon (principal); K51.40 Inflammatory polyps of colon without complications
CPT/HCPCS: 45380; 99152; J2250; J3010

== ENCOUNTER → 2020-07-07 10:30 | Outpatient (CLI) | payer OTHER, MEDICARE, SELFPAY ==
[2020-06-16 15:07] VITALS: BMI 35.2
--- NOTE | 2020-07-28 09:59 | P.HOLT.S_ITS ---
Documentation Liaison Report Referral & Results Date Patient Seen: 07/07/20 Requesting provider: Cassie Donald Indication: bradycardia Duration of monitoring (days): 7 Diary information: there was 1 patient triggered event and 1 patient diary entry Patient triggered event was associated with sinus rhythm, PAC, PVC Patient diary event was associated withsinus rhythm and PAC Data: minimum heart rate identified was 38 beats per minute at 06:20 on 07/10/2020 Maximum heart rate was 138 beats per minute at 13:25 on 07/07/2020 Approximately 3.5% of identified beats were supraventricular ectopic in origin Less than 1% of identified beats were ventricular ectopic in origin Therefore runs of SVT / atrial tachycardia with the fastest being 125 beats per minute during a 4 beat run. 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 Patient's overall minimum heart rate was relatively bradycardic but overall patient was not necessarily excessively bradycardic.
== END ==
PROVIDERS: Family Provider Nurse Practitioner; PCP Nurse Practitioner; Referring Provider Nurse Practitioner; Visit Provider Nurse Practitioner
DX: R00.1 Bradycardia, unspecified (principal)
CPT/HCPCS: 0296T; 0298T

== ENCOUNTER → 2020-08-06 06:24 | Outpatient (CLI) | payer OTHER, MEDICARE, SELFPAY ==
[2020-06-16 15:07] VITALS: BMI 35.2
--- NOTE | 2020-08-06 06:25 | DI.MRI.S_ITS ---
PROCEDURE: MR KNEE RT WO CON INDICATIONS: pain medial right knee x6 weeks TECHNIQUE: Noncontrast sagittal PD fast spin echo and T2 fast spin echo with fat saturation, sagittal 3-D FLASH with fat saturation; coronal T1 spin echo and PD fast spin echo with fat saturation, and axial PD fast spin echo with fat saturation through the knee. COMPARISON: [facility], CR, XR KNEE RT 1TO2V, 06/16/2020, 10:57. FINDINGS: Image quality: Excellent. Menisci: Linear horizontally oriented high signal intensity within the medial meniscal body and posterior horn is present, demonstrating inferior articular surface extension, indicating horizontal tearing. Lateral meniscus demonstrates linear high signal intensity within the posterior horn, demonstrating inferior articular surface extension, indicating horizontal tearing. Cruciate ligaments: The anterior and posterior cruciate ligaments appear intact. Medial structures: The medial collateral ligament appears intact. Visualized portions of the pes anserinus tendons appear normal. No abnormal bursal fluid. Lateral structures: The lateral collateral ligament, long and short heads of the biceps femoris tendon appear intact. The popliteus tendon appears normal. Iliotibial band appears normal. Anterior structures: The quadriceps and patellar tendons appear intact. Mild T2 signal elevation within the patellar tendon at the patellar insertion. Patellar alignment is normal. No femoral trochlear dysplasia or ventral trochlear prominence. Mild edema in the infrapatellar fat pad. Bones and cartilage: No bone marrow contusions or fractures. Mild subchondral degenerative marrow edema within the weight-bearing aspects of the medial femoral condyle and medial tibial plateau. There are a few adjacent high-grade articular cartilage fissures within the medial patellar facet. Moderate articular cartilage loss overlies the lateral patellar facet. There is a 7 mm region of high-grade articular cartilage loss overlying the lateral aspect of the medial femoral trochlea. Joint space: There is a small knee joint effusion. No Gore's cyst. Normal appearing synovial plicae are incidentally noted. IMPRESSION: 1. Tricompartmental osteoarthritis with associated articular cartilage loss. 2. Medial and lateral meniscal tearing. 3. Mild patellar tendinitis. 4. Knee joint effusion. Dictated by: Rola Fried M.D. on 08/06/2020 at 10:01 Approved by: Rola Fried M.D. on 08/06/2020 at 10:03
== END ==
PROVIDERS: Family Provider Nurse Practitioner; PCP Nurse Practitioner; Referring Provider Nurse Practitioner; Visit Provider Nurse Practitioner
DX: M25.561 Pain in right knee (principal); S83.241A Other tear of medial meniscus, current injury, right knee, initial encounter; S83.281A Other tear of lateral meniscus, current injury, right knee, initial encounter; M76.51 Patellar tendinitis, right knee; M17.11 Unilateral primary osteoarthritis, right knee; M25.461 Effusion, right knee
CPT/HCPCS: 73721

== ENCOUNTER 2021-06-02 11:11 | Emergency (ER) | payer OTHER, MEDICARE, SELFPAY ==
[2020-06-16 15:07] VITALS: BMI 35.2
[2021-06-02] VITALS (19 sets, daily range): BP systolic 115–149; BP diastolic 58–72; PULSE 53–65; RESP 15–25; TEMP 36.6; O2SAT 94–100; BMI 38.0
[2021-06-02 12:13] LABS: Add Manual Diff / Slide Review NO; Basophils Absolute Auto 0 /uL (0-100); Basophils Percent Auto 0.2 % (0-2); Eosinophils Absolute Auto 0 /uL (0-450); Hematocrit 41.8 % (41-53); Hemoglobin 14.4 g/dL (13.5-17.5); Lymphocytes Absolute Auto 600 /uL (1100-4500); Lymphocytes Percent Auto 3.4 % (25-40); Mean Corpuscular HGB Conc 34.4 % (30-36); Mean Corpuscular Hemoglobin 30.9 PG (26-34); Mean Corpuscular Volume 89.8 fL (80-100); Monocytes Absolute Auto 500 /uL (0-900); Neutrophils Absolute Auto 15100 /uL (1500-7000); Neutrophils Percent Auto 93.4 % (50-75); Platelet Count 232 X10^3/uL (150-400); Red Blood Cell Count 4.66 X10^6/uL (4.5-5.9); Red Cell Distribution Width 12.6 % (11.6-14.8); White Blood Cell Count 16.2 X10^3/uL (4.5-11.0)
[2021-06-02] MEDS: SODIUM CHLORIDE 0.9% 1,000 ML 150 ML IV (12:18)
[2021-06-02 12:25] LABS: Alanine Aminotransferase 30 IU/L (<50); Albumin 4.3 g/dL (3.5-5.0); Albumin Globulin Ratio 1.5 (1.0-2.8); Alkaline Phosphatase 62 U/L (38-126); Aspartate Aminotransferase 28 IU/L (17-59); BUN Creatinine Ratio 29.9 (6-22); Bilirubin Total 0.6 mg/dL (0.2-1.3); Blood Urea Nitrogen 32 mg/dL (9-20); Calcium 8.8 mg/dL (8.4-10.2); Carbon Dioxide 22 mmol/L (22-32); Chloride 98 mmol/L (98-107); Creatine Kinase 45 U/L (55-170); Estimated Glomerular Filt Rate > 60.0 mL/min (>60); Globulin 2.8 g/dL (1.7-4.1); Glucose 209 mg/dL (80-110); HEMOLYSIS < 15 (0-50); Sodium 129 mmol/L (137-145); Total Protein 7.1 g/dL (6.3-8.2)
[2021-06-02 12:35] LABS: Troponin I < 0.012 ng/mL (0.01-0.034)
--- NOTE | 2021-06-02 12:58 | DI.RAD.S_ITS ---
PROCEDURE: XR SACRUM COCCYX MIN 2V INDICATIONS: Fall TECHNIQUE: 3 views of the sacrum and coccyx acquired. COMPARISON: None. FINDINGS: Bones: No fractures or dislocations. No suspicious bony lesions. Soft tissues: Visualized bowel gas pattern is normal. No suspicious soft tissue densities. IMPRESSION: No fractures. Dictated by: Juan Ramon Soto M.D. on 06/02/2021 at 12:34 Approved by: Juan Ramon Soto M.D. on 06/02/2021 at 12:43
[2021-06-02] MEDS: ACETAMINOPHEN 325 MG TABLET 975 MG PO (13:02)
--- NOTE | 2021-06-02 13:09 | ED_ITS ---
HPI - Syncope General Chief Complaint: Syncope Stated Complaint: FELL AND PASSED OUT. HAS HEART MONITOR Time Seen by Provider: 06/02/21 11:19 Source: patient Mode of arrival: Ambulatory Limitations: no limitations History of Present Illness HPI narrative: 65-year-old male former smoker with history of hypertension h yperlipidemia and multiple prior episodes of syncope presents with his in the chief complaint of 2 syncopal episodes this morning. He states that he has had diarrhea for about the past 5 days but feels well hydrated and drinks plenty of water. He went to bed feeling rather well and woke up early in the morning feeling nauseated. Took a few steps and felt flushed, dizzy and lightheaded in route to the bathroom in order to vomit. He then had a syncopal episode, he quickly came to and attempt to make it to the bathroom and had another syncopal episode which he also felt coming on. He presents to us for evaluation. He does have a loop recorder which she transmitted to his member certification manager. He denies any change in medications or new foods. He is asymptomatic at this point time. He denies chest pain or shortness of breath. Related Data Previous Rx's Medication Instructions Recorded atorvastatin 40 mg tablet 20 mg PO BEDTIME #45 tab 04/22/20 lisinopril 5 mg tablet See Rx Instructions .ROUTE 03/18/21 .COMPLEX #120 tab Allergies Allergy/AdvReac Type Severity Reaction Status Date / Time No Known Drug Allergies Allergy Verified 06/02/21 11:37 Review of Systems Review of Systems Narrative: GENERAL: See HPI HEENT: Denies sinus pain, ear pain, sore throat, difficulty swallowing, d izziness. RESPIRATORY: See HPI CARDIOVASCULAR: See HPI GASTROINTESTINAL: See HPI : Denies dysuria, frequency, incontinence, hematuria, urinary retention. MUSCULOSKELETAL: denies weakness, joint pain, or bony pain SKIN: Denies rash, skin lesions, or other NEUROLOGIC: Denies weakness, headache, numbness, change in speech, confusion, seizures, incoordination. PSYCHIATRIC: No concerning psychosocial issues. 12 point review of systems is negative except for those stated above Patient History Medical History Activity intolerance Dumping syndrome Fatigue Hx MRSA infection Hyperlipidemia associated with type 2 diabetes mellitus Hypertension associated with diabetes (~2008) Hypothyroidism (~2008) Morbid obesity with BMI of 50.0-59.9, adult Obesity (BMI 35.0-39.9 without comorbidity) Obstructive sleep apnea Other equipment operator intermodal yard (current) drug therapy Peripheral neuropathy Right medial knee pain Shoulder pain, right (~2017) Tinnitus (~1999) Type 2 diabetes mellitus (~2008) Surgical History Anesthesia H/O vascular surgery (~2014) History of tonsillectomy (~1962) Status post laser cataract surgery of both eyes (~1992) Family History Father Embolism Mother Breast cancer Grandfather No problems noted. Grandmother Dementia in Pick's disease Grandfather No problems noted. Social History household members: significant other Smoking Status: Former smoker alcohol intake: current substance use type: does not use Smoking Status: Former smoker alcohol intake frequency: holidays/special occasions only Substance Use Type: does not use Exam Narrative Exam Narrative: GENERAL: [65] year old patient appears stated age. Well- developed patient, in mild distress. HEAD: Atraumatic. Normocephalic. EYES: Pupils equal round and reactive. Extraocular motions intact. No scleral icterus. No injection or drainage. ENT: Nose without bleeding, purulent drainage. Throat without erythema, tonsillar hypertrophy or exudate. Airway patent. NECK: Trachea midline. Non tender CARDIOVASCULAR: Regular rate and rhythm without murmurs, gallops, or rubs. RESPIRATORY: Clear to auscultation. Breath sounds equal bilaterally. No wheezes, rales, or rhonchi. GASTROINTESTINAL: Abdomen soft, non-tender, nondistended. EXTREMITIES: No edema or joint tenderness. BACK: Nontender without deformity or crepitance. No flank tenderness. NEURO: AOx3. SKIN: No rash or erythema of visible areas Initial Vital Signs Initial Vital Signs: Vital Signs Temperature 97.8 F 06/02/21 11:32 Pulse Rate 65 06/02/21 11:32 Respiratory Rate 16 06/02/21 11:32 Blood Pressure 139/63 06/02/21 11:32 Pulse Oximetry 100 06/02/21 11:32 Course Orders Ordered: ED Orders 06/02/21 11:43 EKG-12 Lead Stat 06/02/21 11:52 Complete Blood Count AUTO DIFF Stat Comprehensive Metabolic Panel Stat Troponin & CK Cardiac Panel Stat 06/02/21 12:58 XR sacrum coccyx min 2V Stat Discontinued Medications Acetaminophen (Acetaminophen 325 Mg Tablet) 975 mg PO NOW ONE Stop: 06/02/21 13:00 Last Admin: 06/02/21 13:02 Dose: 975 mg Documented by: ELIZABETH Acetaminophen (Acetaminophen 325 Mg Tablet) 650 mg PO NOW ONE Stop: 06/02/21 13:10 Last Admin: 06/02/21 13:12 Dose: Not Given Documented by: ELIZABETH Sodium Chloride (Normal Saline 0.9%) 1,000 mls @ 150 mls/hr IV CONT LA NENA Last Infusion: 06/02/21 15:38 Dose: 0 mls/hr Documented by: Admin: 06/02/21 12:18 Dose: 150 mls/hr Documented by: ELIZABETH Consultations Consultation #1: I had extensive discussion with the patient's electrophysi ologist. The interrogation has been reviewed and no significant findings were noted. We sure the opinion that this is likely dehydration and vasovagal mediated syncope and patient is appropriate for discharge. Vital Signs Vital signs: Vital Signs - 8 hr 06/02/21 12:15 06/02/21 12:17 06/02/21 12:30 Pulse Rate 65 64 62 Respiratory Rate 18 20 Blood Pressure 123/58 L 115/58 L Pulse Oximetry 96 98 96 06/02/21 12:45 06/02/21 13:00 06/02/21 13:30 Pulse Rate 62 60 61 Respiratory Rate 18 19 20 Blood Pressure 118/58 L 121/66 129/65 Pulse Oximetry 97 97 97 06/02/21 13:45 06/02/21 14:00 06/02/21 14:15 Pulse Rate 60 60 61 Respiratory Rate 21 18 22 Blood Pressure 117/58 L 127/59 L 115/58 L Pulse Oximetry 97 94 99 06/02/21 14:30 06/02/21 14:45 06/02/21 15:00 Pulse Rate 63 55 L 62 Respiratory Rate 24 22 25 H Blood Pressure 124/58 L 121/58 L 129/64 Pulse Oximetry 97 99 100 06/02/21 16:21 06/02/21 16:22 06/02/21 16:30 Pulse Rate 58 L 58 L 56 L Respiratory Rate 18 17 Blood Pressure 149/72 H 140/62 Pulse Oximetry 99 99 98 06/02/21 16:45 06/02/21 17:00 06/02/21 17:15 Pulse Rate 53 L 56 L 54 L Respiratory Rate 15 21 17 Blood Pressure 136/65 141/63 H Pulse Oximetry 99 98 99 MDM - Syncope Lab Data Result diagrams: 06/02/21 11:52 06/02/21 11:52 Labs: Lab Results 06/02/21 06/02/21 Range/Units 11:52 11:52 WBC 16.2 H (4.5-11.0) X10^3/uL RBC 4.66 (4.5-5.9) X10^6/uL Hgb 14.4 (13.5-17.5) g/dL Hct 41.8 (41-53) % MCV 89.8 (80-100) fL MCH 30.9 (26-34) PG MCHC 34.4 (30-36) % RDW 12.6 (11.6-14.8) % Plt Count 232 (150-400) X10^3/uL Neut % (Auto) 93.4 H (50-75) % Lymph % (Auto) 3.4 L (25-40) % Hopkins % (Auto) 3.0 (3-14) % Eos % (Auto) 0.0 L (2-4) % Baso % (Auto) 0.2 (0-2) % Neut # (Auto) 92746 H (0202-5197) /uL Lymph # (Auto) 600 L (2773-2291) /uL Hopkins # (Auto) 500 (0-900) /uL Eos # (Auto) 0 (0-450) /uL Baso # (Auto) 0 (0-100) /uL Sodium 129 L (137-145) mmol/L Potassium 5.0 (3.4-5.1) mmol/L Chloride 98 (98-107) mmol/L Carbon Dioxide 22 (22-32) mmol/L BUN 32 H (9-20) mg/dL Creatinine 1.07 (0.66-1.25) mg/dL Estimated GFR > 60.0 (>60) mL/min BUN/Creatinine Ratio 29.9 H (6-22) Glucose 209 H (80-110) mg/dL Calcium 8.8 (8.4-10.2) mg/dL Total Bilirubin 0.6 (0.2-1.3) mg/dL AST 28 (17-59) IU/L ALT 30 (<50) IU/L Alkaline Phosphatase 62 (38-126) U/L Total Creatine Kinase 45 L (55-170) U/L CK-MB (CK-2) TNP CK-MB (CK-2) Rel Index TNP Troponin I < 0.012 (0.01-0.034) ng/mL Total Protein 7.1 (6.3-8.2) g/dL Albumin 4.3 (3.5-5.0) g/dL Globulin 2.8 (1.7-4.1) g/dL Albumin/Globulin Ratio 1.5 (1.0-2.8) Point of Care Testing Glucose POC 209 MDM Narrative Medical decision making narrative: Patient feet feeling quite well during his visit. Vital signs and physical exam are very reassuring. His loop recorder has been interrogated and no significant findings were noted. I had discussion with Cardiology and we sure the opinion that this is most likely a dehydration and vasovagal mediated syncope. Patient given return precautions and questions answered to his apparent satisfaction Discharge Plan Departure Patient Disposition: Home Clinical Impression: Vasovagal syncope Instructions: DI for Syncope in Adults (Fainting) Activity Restrictions/Additional Instructions: *You have been diagnosed with [fainting, most likely due to a combination of dehydration and increased vagal tone. Your physical exam, response to therapies and interrogation of loop recorder are all very reassuring. I have discussed this case with on-call Cardiology and they sure the opinion that you are safe and appropriate for discharge] *What to do: *Please continue to take your regular medications as directed. [ ] New medication prescriptions sent to your pharmacy: [ ] [ ] New medication written as a paper prescription [x ] No new medications given *Please follow up with your primary care provider in 2-3 days, call for an appointment. Let them know you were seen in the Emergency Department and that we ask that you be seen in follow up. We will electronically transmit a record of today's note if your PCP is in our system *If you do not have a primary care provider please contact the [facility] Resource line at [phone]. They will ask some questions about your medical history and help get you set up with a doctor in the community. *Return to Emergency Department if you should have any new, worsening or concerning symptoms, such as [fever greater than 101 F, shaking chills, worsening pain, persistent vomiting or other bothersome symptoms] Prescriptions: No Action atorvastatin 40 mg tablet 20 mg PO BEDTIME Qty: 45 RF: 3 lisinopril 5 mg tablet See Rx Instructions .ROUTE .COMPLEX Qty: 120 RF: 0 Referrals: Cassie Donald ARNP [Primary Care Provider] -
--- NOTE | 2021-06-02 15:32 | PC.NURSE ---
Addendum entered by Nadege Carranza R.N. 06/02/21 15:33: ambulated w/o difficulty. Denies shortness of breath, chest pain, dizziness. Original Note: ambulated w/o difficul;elder
== END 2021-06-02 17:29 | disposition home or self-care (01) ==
PROVIDERS: Emergency Provider Emergency Medicine; Family Provider Nurse Practitioner; PCP Nurse Practitioner
DX: R55 Syncope and collapse (principal); R42 Dizziness and giddiness; R11.2 Nausea with vomiting, unspecified; R07.9 Chest pain, unspecified
CPT/HCPCS: 36415; 72220; 80053; 82550; 82962; 84484; 85025; 93005; 96360; 96361; 99284

== ENCOUNTER → 2022-05-01 09:22 | Outpatient (CLI) | payer OTHER, MEDICARE, SELFPAY ==
[2020-06-16 15:07] VITALS: BMI 35.2
[2022-05-01 10:35] LABS: Alanine Aminotransferase 20 IU/L (<50); Albumin 4.5 g/dL (3.5-5.0); Albumin Globulin Ratio 1.6 (1.0-2.8); Alkaline Phosphatase 64 U/L (38-126); Aspartate Aminotransferase 24 IU/L (17-59); BUN Creatinine Ratio 18.2 (6-22); Bilirubin Total 0.7 mg/dL (0.2-1.3); Blood Urea Nitrogen 14 mg/dL (9-20); Calcium 9.1 mg/dL (8.4-10.2); Carbon Dioxide 27 mmol/L (22-32); Chloride 103 mmol/L (98-107); Cholesterol 152 mg/dL (140-199); Estimated Glomerular Filt Rate > 60 mL/min (>60); Globulin 2.8 g/dL (1.7-4.1); Glucose 124 mg/dL (80-110); HDL Cholesterol 40 mg/dL (40-60); HEMOLYSIS < 15 (0-50); LDL Cholesterol Calculated 78 mg/dL (<100); Potassium 4.9 mmol/L (3.4-5.1); Sodium 135 mmol/L (137-145); Total Protein 7.3 g/dL (6.3-8.2); Triglycerides 172 mg/dL (35-150)
[2022-05-01 11:01] LABS: Free T3, Triiodothyronine Free 2.62 pg/mL (2.77-5.27); Free T4, Direct Thyroxine 0.85 ng/dL (0.78-2.19)
[2022-05-01 11:05] LABS: Hemoglobin A1C% w Est Avg Glu 6.5 % (4.0-6.0)
[2022-05-01 11:14] LABS: Thyroid Stimulating Hormone 2.83 uIU/mL (0.47-4.68)
[2022-05-01 11:28] LABS: Creatinine Urine Random 66.4 mg/dL
[2022-05-01 11:48] LABS: Microalbumi Creatinin Ratio Ur 370.4 ug/mg CR (<30); Microalbumin Urine Random 24.6 mg/dL (0-1.6)
== END ==
PROVIDERS: Family Provider Nurse Practitioner; PCP Nurse Practitioner; Referring Provider Nurse Practitioner; Visit Provider Nurse Practitioner
DX: E03.9 Hypothyroidism, unspecified (principal); E11.9 Type 2 diabetes mellitus without complications; E78.5 Hyperlipidemia, unspecified; I10 Essential (primary) hypertension; Z79.899 Other long term (current) drug therapy
CPT/HCPCS: 36415; 80053; 80061; 82043; 82570; 83036; 84439; 84443; 84481

== ENCOUNTER → 2023-08-09 11:53 | Outpatient (CLI) | payer OTHER, MEDICARE, SELFPAY ==
[2022-12-11 16:56] VITALS: BMI 35.2
[2023-08-09 14:14] LABS: Alanine Aminotransferase 23 IU/L (<50); Albumin 4.5 g/dL (3.5-5.0); Albumin Globulin Ratio 1.7 (1.0-2.8); Alkaline Phosphatase 66 U/L (38-126); Aspartate Aminotransferase 26 IU/L (17-59); BUN Creatinine Ratio 32.9 (6-22); Bilirubin Total 0.7 mg/dL (0.2-1.3); Blood Urea Nitrogen 52 mg/dL (9-20); Calcium 9.3 mg/dL (8.4-10.2); Carbon Dioxide 25 mmol/L (22-32); Chloride 102 mmol/L (98-107); Cholesterol 163 mg/dL (140-199); Estimated Glomerular Filt Rate 47 mL/min (>60); Globulin 2.7 g/dL (1.7-4.1); Glucose 86 mg/dL (80-110); HDL Cholesterol 39 mg/dL (40-60); HEMOLYSIS 20 (0-50); LDL Cholesterol Calculated 83 mg/dL (<100); Potassium 5.3 mmol/L (3.4-5.1); Sodium 138 mmol/L (137-145); Total Protein 7.2 g/dL (6.3-8.2); Triglycerides 203 mg/dL (35-150)
[2023-08-09 14:25] LABS: Creatinine Urine Random 88.8 mg/dL
[2023-08-09 15:02] LABS: Microalbumi Creatinin Ratio Ur 400.9 ug/mg CR (<30); Microalbumin Urine Random 35.6 mg/dL (0-1.6)
[2023-08-09 15:48] LABS: Hemoglobin A1C% w Est Avg Glu 5.8 % (4.0-6.0)
== END ==
PROVIDERS: Family Provider Nurse Practitioner; PCP Nurse Practitioner; Referring Provider Nurse Practitioner; Visit Provider Nurse Practitioner
DX: E78.2 Mixed hyperlipidemia (principal); E11.59 Type 2 diabetes mellitus with other circulatory complications; I10 Essential (primary) hypertension; E11.69 Type 2 diabetes mellitus with other specified complication; E78.5 Hyperlipidemia, unspecified; E11.610 Type 2 diabetes mellitus with diabetic neuropathic arthropathy; Z79.899 Other long term (current) drug therapy
CPT/HCPCS: 36415; 80053; 80061; 82043; 82570; 83036